=== PATIENT | female | born 1955 | race Two or more races ===

== ENCOUNTER → 2017-01-19 | Outpatient (CLI) | payer OTHER | LOC: FIMAGING 14:06 | PROVIDERS: ATTEND Physician Assistant | DX: M17.0 Bilateral primary osteoarthritis of knee (principal) ==

== ENCOUNTER 2017-09-30 18:56 | Emergency (ER) | payer OTHER ==
[2017-09-30 19:11] VITALS: BP 131/94
[2017-09-30] MEDS ORDERED: TDAP ADULT 0.5 ML INJ (BOOSTRIX) IM ONE (19:11)
[2017-09-30] MEDS ORDERED: LET GEL TOPICAL 1 EA SYR TP ONE (19:11)
--- NOTE | 2017-09-30 19:13 | EDPHY ---
H & P Time Seen by Provider: 09/30/17 19:07 HPI/ROS: CHIEF COMPLAINT: Finger tip laceration HISTORY OF PRESENT ILLNESS: The patient is a 62-year-old female whose cutting with her sheaf knife and cut her left middle finger. She shaved off the middle aspect of the fingernail and has a very slight nail bed injury. No crush injury. Bleeding controlled. REVIEW OF SYSTEMS: Constitutional: denies: chills, fever, recent illness, recent injury EENTM: denies: blurred vision, double vision, nose congestion Respiratory: denies: cough, shortness of breath Cardiac: denies: chest pain, irregular heart rate, lightheadedness, palpitations Gastrointestinal/Abdominal: denies: abdominal pain, diarrhea, nausea, vomiting, blood streaked stools Genitourinary: denies: dysuria, frequency, hematuria, pain Musculoskeletal: denies: joint pain, muscle pain Skin: See HPI Neurological: denies: headache, numbness, paresthesia, tingling, dizziness, weakness Hematologic/Lymphatic: denies: blood clots, easy bleeding, easy bruising Immunologic/allergic: denies: HIV/AIDS, transplant EXAM: GENERAL: Well-appearing, well-nourished and in no acute distress. HEAD: Atraumatic, normocephalic. EYES: Pupils equal round and reactive to light, extraocular movements intact, sclera anicteric, conjunctiva are normal. ENT: TMs normal, nares patent, oropharynx clear without exudates. Moist mucous membranes. NECK: Normal range of motion, supple without lymphadenopathy or JVD. LUNGS: Breath sounds clear to auscultation bilaterally and equal. No wheezes rales or rhonchi. HEART: Regular rate and rhythm without murmurs, rubs or gallops. ABDOMEN: Soft, nontender, normoactive bowel sounds. No guarding, no rebound. No masses appreciated. BACK: No CVA tenderness, no spinal tenderness, step-offs or deformities EXTREMITIES: Patient has a avulsion/laceration to her left middle finger. She cut off part of her fingernail. It does involve the nail bed but is not deep. There is no material for repair. No bony involvement. See diagram NEUROLOGICAL: Cranial nerves II through XII grossly intact. Normal speech, normal gait. 5/5 strength, normal movement in all extremities, normal sensation PSYCH: Normal mood, normal affect. SKIN: Warm, dry, normal turgor, no visible rashes or lesions. Source: Patient Exam Limitations: No limitations - Personal History Current Tetanus/Diphtheria Vaccine: Unsure - Medical/Surgical History Hx Asthma: No Hx Chronic Respiratory Disease: No Hx Diabetes: No Hx Cardiac Disease: No Hx Renal Disease: No Hx Cirrhosis: No Hx Alcoholism: No Hx HIV/AIDS: No - Family History Significant Family History: No pertinent family hx - Social History Smoking Status: Never smoked Alcohol Use: Sober Constitutional: Initial Vital Signs Temperature (C) 36.6 C 09/30/17 19:08 Heart Rate 102 H 09/30/17 19:08 Respiratory Rate 16 09/30/17 19:08 Blood Pressure 131/94 H 09/30/17 19:08 O2 Sat (%) 96 09/30/17 19:08 O2 Delivery Mode Room Air Allergies/Adverse Reactions: No Known Allergies Allergy (Unverified 09/30/17 19:06) Home Medications: Medication Instructions Recorded Citalopram 09/30/17 Losartan Potassium 09/30/17 Percocet 5-325 mg Tablet 09/30/17 Pravastatin Sodium 09/30/17 ED Images - Extremities Fingertip Front/Back: 1 - Area of laceration with fingernail gun and small amount of nail bed tissue. Medical Decision Making ED Course/Re-evaluation: Patient's finger was anesthetized with let and then cleaned and dressed with antibiotic ointment and Vaseline impregnated gauze. Bleeding is controlled. We discussed continued care. The patient understands and agrees. She declines further workup or testing at this time. Differential Diagnosis: Partial list of the Differential diagnosis considered include but were not limited to; nail bed injury, fingernail injury, laceration and although unlikely based on the history and physical exam, I also considered fracture, crush injury, joint injury, assault. I discussed these differential diagnoses and the plan with the patient as well as the usual and expected course. The patient understands that the diagnosis is provisional and that in medicine we are not always correct and that further workup is often warranted. Usual and customary warnings were given. All of the patient's questions were answered. The patient was instructed to return to the emergency department should the symptoms at all worsen or return, otherwise to followup with the physician as we discussed. - Data Points Medications Given: Discontinued Medications Diphtheria/Tetanus/Acell Pertussis (Boostrix) 0.5 ml IM .ONCE ONE Stop: 09/30/17 19:12 Last Admin: 09/30/17 19:19 Dose: 0.5 ml Tetracaine/Epinephrine/Lidocaine (Let Gel Topical) 1 ea TP EDNOW ONE Stop: 09/30/17 19:12 Last Admin: 09/30/17 19:18 Dose: 1 ea Departure - Departure Disposition: Home, Routine, Self-Care Clinical Impression: Laceration of fingernail Qualifiers: Encounter type: initial encounter Qualified Code(s): S61.319A - Laceration without foreign body of unspecified finger with damage to nail, initial encounter Condition: Fair Instructions: Laceration (ED) Additional Instructions: Keep your laceration clean and treat with antibiotic ointment and sterile dressings has shown. Referrals: MICHELLE TRAN [Primary Care Provider] - As per Instructions
== END 2017-09-30 19:50 | disposition home or self-care (01) ==
LOC: CED 18:56
DX: S61.312A Laceration without foreign body of right middle finger with damage to nail, initial encounter (principal); Z23 Encounter for immunization; W26.0XXA Contact with knife, initial encounter